=== PATIENT | male | born 1990 | race Caucasian/White ===

== ENCOUNTER 2022-04-14 11:10 | Emergency (ER) | payer SELFPAY ==
[~2022-04-14] VITALS: Ht 177.8 cm; Wt 78.0 kg
[2022-04-14 13:05] LABS: BASOPHILS # (AUTO) 0.1 10^3/uL (0.0-0.1); BASOPHILS % (AUTO) 1 % (0-10); EOSINOPHILS # (AUTO) 0.2 10^3/uL (0.0-0.3); EOSINOPHILS % (AUTO) 2 % (0-10); HEMATOCRIT 39 % (40-54); HEMOGLOBIN 13.3 g/dL (13.3-17.7); LYMPHOCYTES # (AUTO) 2.1 10^3/uL (1.0-4.0); LYMPHOCYTES % (AUTO) 24 % (12-44); MEAN CORPUSCULAR HEMOGLOBIN 31 pg (25-34); MEAN CORPUSCULAR HGB CONC 35 g/dL (32-36); MEAN CORPUSCULAR VOLUME 89 fL (80-99); MEAN PLATELET VOLUME 9.7 fL (9.0-12.2); MONOCYTES # (AUTO) 0.7 10^3/uL (0.0-1.0); MONOCYTES % (AUTO) 8 % (0-12); NEUTROPHILS # (AUTO) 5.5 10^3/uL (1.8-7.8); NEUTROPHILS % (AUTO) 64 % (42-75); PLATELET COUNT 278 10^3/uL (130-400); WHITE BLOOD COUNT 8.5 10^3/uL (4.3-11.0)
[2022-04-14 13:07] LABS: BILIRUBIN,URINE NEGATIVE (NEGATIVE); CLARITY,URINE CLEAR; COLOR,URINE YELLOW; GLUCOSE, URINE (UA) NEGATIVE (NEGATIVE); KETONES,URINE NEGATIVE (NEGATIVE); LEUKOCYTE ESTERASE ,URINE NEGATIVE (NEGATIVE); NITRITE,URINE NEGATIVE (NEGATIVE); PROTEIN,URINE NEGATIVE (NEGATIVE)
[2022-04-14 13:13] LABS: BACTERIA,URINE FEW /HPF; RBC,URINE 0-2 /HPF
[2022-04-14 13:14] LABS: AMORPHOUS SEDIMENT,UR FEW AMOR URATES /LPF; CALCIUM OXALATE CRYSTALS,UR RARE /LPF
[2022-04-14 13:16] LABS: ALBUMIN 4.9 GM/DL (3.2-4.5); CHLORIDE 103 MMOL/L (98-107); POTASSIUM 3.3 MMOL/L (3.6-5.0); SODIUM 139 MMOL/L (135-145)
[2022-04-14 13:18] LABS: CALCIUM 9.8 MG/DL (8.5-10.1)
[2022-04-14 13:19] LABS: AMPHETAMINE SCREEN, URINE NEGATIVE (NEGATIVE); BENZODIAZEPINES SCREEN URINE NEGATIVE (NEGATIVE); COCAINE SCREEN URINE POSITIVE (NEGATIVE); GLUCOSE 122 MG/DL (70-105); TOTAL PROTEIN 7.9 GM/DL (6.4-8.2)
[2022-04-14 13:20] LABS: BARBITURATE SCREEN URINE NEGATIVE (NEGATIVE); CANNABINOID SCREEN, URINE POSITIVE (NEGATIVE); CARBON DIOXIDE 25 MMOL/L (21-32); METHADONE STAT NEGATIVE (NEGATIVE); OPIATE SCREEN URINE NEGATIVE (NEGATIVE); OXYCODONE STAT NEGATIVE (NEGATIVE); PROPOXYPHENE STAT NEGATIVE (NEGATIVE); TRICYCLIC ANTIDEPRESSANTS SCRE NEGATIVE (NEGATIVE)
[2022-04-14 13:21] LABS: BILIRUBIN,TOTAL 0.8 MG/DL (0.1-1.0)
[2022-04-14 13:23] LABS: ALKALINE PHOSPHATASE 64 U/L (40-136); CREATININE SERUM 1.07 MG/DL (0.60-1.30); GFR ESTIMATED 96
[2022-04-14 13:24] LABS: BUN/CREATININE RATIO 12
[2022-04-14 13:25] LABS: SALICYLATE < 5.0 MG/DL (5.0-20.0)
[2022-04-14 13:26] LABS: ALANINE AMINOTRANSFERASE 19 U/L (0-55); CREATINE KINASE 278 U/L (30-200)
[2022-04-14 13:41] LABS: ACETAMINOPHEN < 10 UG/ML (10-30)
[2022-04-14] MEDS ORDERED: KCL 10 MEQ TAB (MICRO K) PO ONE (14:15)
[2022-04-14] MEDS: LACTATED RINGERS 1,000 ML IV ONE ×2 (14:17→14:20)
--- NOTE | 2022-04-14 14:42 | ED Psychosocial ---
General Chief Complaint: Psych/Social Disorder Stated Complaint: WANTS DETOX Nursing Triage Note: PT AMBULATE TO [facility] WITH C/O TAKING METH/FENTANYL X4 DAYS AND NOT FEELS SHAKY. PT'S SISTER WORKS FOR [employer] AND HAS SPOKEN WITH [facility] AND WAS TOLD TO COME TO ED FOR PSYCH EVAL. PT HAD ATTEMPTED TO CONTACT [facility] AND DID NOT GET WHAT THEY WANT. PT DENIES SUICIDAL AN HOMICIDAL THOUGHTS. Source: patient Exam Limitations: no limitations History of Present Illness Date Seen by Provider: Apr 14, 2022 Time Seen by Provider: 12:48 Initial Comments This 31-year-old young man presents to the emergency room accompanied by his sister with concerns about behavioral health changes related to recent substance abuse. Patient has spent much of the past few months incarcerated. He was released from alf about 1 week ago. He was "picked up again" yesterday for about 6 hours. He has been using illicit substances after release from alf. He believes he used methamphetamine and possibly fentanyl, but he is uncertain. He has lapses of time related to his substance abuse. Sister also states he has had notable delusions and possible hallucinations. Patient describes his experience as "terrors and bad dreams." Patient had been drinking daily until his incarcerations but has not had opportunity to drink much alcohol since he has been incarcerated. He reports his last substance abuse was about 24 hours ago. He apparently was told the substance he used was cocaine but he thinks it was methamphetamine and possibly fentanyl. Patient and family are seeking "detox" and a "psychiatric evaluation." He is presently alert and oriented. He denies present hallucinations or delusions. He does not appear to be acutely psychotic. He denies any suicidal or homicidal ideation. He reports no physical complaints. He is anxious but does not appear to be withdrawing. Allergies and Home Medications Allergies Coded Allergies: No Known Drug Allergies (Unverified , 04/14/22) Patient Home Medication List Home Medication List Reviewed: Yes Hydroxyzine HCl (Hydroxyzine HCl) 25 Mg Tablet, 25 MG PO Q6H PRN for ANXIETY Prescribed by: LA LAWRENCE on 04/14/22 3714 Review of Systems Constitutional: no symptoms reported EENTM: no symptoms reported Respiratory: no symptoms reported Cardiovascular: no symptoms reported Gastrointestinal: no symptoms reported Genitourinary: no symptoms reported Musculoskeletal: no symptoms reported Skin: no symptoms reported Psychiatric/Neurological: See HPI Past [id number]-Qeyoyp Hx Patient Social History Tobacco Use?: Yes Tobacco type used: Cigarettes Smoking Status: Heavy Tobacco Smoker Smokeless Tobacco Frequency: Never a User Use of E-Cig and/or Vaping dev: No Substance use?: Yes Substance type: Methamphetamine, Other (Cocaine) Additional substance use comme: FENTANYL, COCAINE Substance frequency: Daily Alcohol Use?: Yes Alcohol Frequency: Daily Pt feels they are or have been: No Past Medical History Surgeries: Yes Appendectomy Respiratory: No Cardiac: No Neurological: No Genitourinary: No Gastrointestinal: No Musculoskeletal: No Endocrine: No HEENT: No Cancer: No Psychosocial: Yes Anxiety, Depression Integumentary: No Physical Exam Vital Signs - First Documented 04/14/22 04/14/22 11:40 14:54 Temp 36.8 Pulse 101 Resp 19 B/P (MAP) 155/66 (95) Pulse Ox 96 O2 Delivery Room Air Capillary Refill : Less Than 3 Seconds Height, Weight, BMI Height: '" Weight: lbs. oz. kg; 24.00 BMI Method: General Appearance: WD/WN, other (Anxious) HEENT: PERRL/EOMI, normal ENT inspection Neck: normal inspection Respiratory: lungs clear, normal breath sounds, no respiratory distress Cardiovascular: no edema, no murmur, tachycardia (Mild) Gastrointestinal: non tender, soft Extremities: normal inspection, no pedal edema Neurologic/Psychiatric: no motor/sensory deficits, alert, oriented x 3, other (Anxious, mild dystonic movements and anxious twitching) Appearance/Memory: appropriate appearance, appropriate insight Behavior/Eye Contact: cooperative, good eye contact, normal speech Thoughts/Hallucinations: no apparent hallucination Skin: normal color, warm/dry Progress/Results/Core Measures Results/Orders Lab Results Laboratory Tests Test 04/14/22 12:57 Range/Units White Blood Count 8.5 4.3-11.0 10^3/uL Red Blood Count 4.34 4.30-5.52 10^6/uL Hemoglobin 13.3 13.3-17.7 g/dL Hematocrit 39 L 40-54 % Mean Corpuscular Volume 89 80-99 fL Mean Corpuscular Hemoglobin 31 25-34 pg Mean Corpuscular Hemoglobin Concent 35 32-36 g/dL Red Cell Distribution Width 12.2 10.0-14.5 % Platelet Count 278 130-400 10^3/uL Mean Platelet Volume 9.7 9.0-12.2 fL Immature Granulocyte % (Auto) 0 % Neutrophils (%) (Auto) 64 42-75 % Lymphocytes (%) (Auto) 24 12-44 % Monocytes (%) (Auto) 8 0-12 % Eosinophils (%) (Auto) 2 0-10 % Basophils (%) (Auto) 1 0-10 % Neutrophils # (Auto) 5.5 1.8-7.8 10^3/uL Lymphocytes # (Auto) 2.1 1.0-4.0 10^3/uL Monocytes # (Auto) 0.7 0.0-1.0 10^3/uL Eosinophils # (Auto) 0.2 0.0-0.3 10^3/uL Basophils # (Auto) 0.1 0.0-0.1 10^3/uL Immature Granulocyte # (Auto) 0.0 0.0-0.1 10^3/uL Urine Color YELLOW Urine Clarity CLEAR Urine pH 6.0 5-9 Urine Specific [place] >=1.030 1.016-1.022 Urine Protein NEGATIVE NEGATIVE Urine Glucose (UA) NEGATIVE NEGATIVE Urine Ketones NEGATIVE NEGATIVE Urine Nitrite NEGATIVE NEGATIVE Urine Bilirubin NEGATIVE NEGATIVE Urine Urobilinogen 0.2 < = 1.0 MG/DL Urine Leukocyte Esterase NEGATIVE NEGATIVE Urine RBC (Auto) NEGATIVE NEGATIVE Urine RBC 0-2 /HPF Urine WBC 5-10 H /HPF Urine Crystals PRESENT H /LPF Urine Calcium Oxalate Crystals RARE H /LPF Urine Amorphous Sediment FEW NOLVIA URATES H /LPF Urine Bacteria FEW H /HPF Urine Casts NONE /LPF Urine Mucus MODERATE H /LPF Urine Culture Indicated YES Sodium Level 139 135-145 MMOL/L Potassium Level 3.3 L 3.6-5.0 MMOL/L Chloride Level 103 98-107 MMOL/L Carbon Dioxide Level 25 21-32 MMOL/L Anion Gap 11 5-14 MMOL/L Blood Urea Nitrogen 13 7-18 MG/DL Creatinine 1.07 0.60-1.30 MG/DL Estimat Glomerular Filtration Rate 96 BUN/Creatinine Ratio 12 Glucose Level 122 H 70-105 MG/DL Calcium Level 9.8 8.5-10.1 MG/DL Corrected Calcium 8.5-10.1 MG/DL Total Bilirubin 0.8 0.1-1.0 MG/DL Aspartate Amino Transf (AST/SGOT) 19 5-34 U/L Alanine Aminotransferase (ALT/SGPT) 19 0-55 U/L Alkaline Phosphatase 64 40-136 U/L Total Creatine Kinase 278 H 30-200 U/L Total Protein 7.9 6.4-8.2 GM/DL Albumin 4.9 H 3.2-4.5 GM/DL [facility] [place] Testing 1.24 0.35-4.94 UIU/ML Salicylates Level < 5.0 L 5.0-20.0 MG/DL Urine Opiates Screen NEGATIVE NEGATIVE Urine Oxycodone Screen NEGATIVE NEGATIVE Urine Methadone Screen NEGATIVE NEGATIVE Urine Propoxyphene Screen NEGATIVE NEGATIVE Acetaminophen Level < 10 L 10-30 UG/ML Urine Barbiturates Screen NEGATIVE NEGATIVE Ur Tricyclic Antidepressants Screen NEGATIVE NEGATIVE Urine Phencyclidine Screen NEGATIVE NEGATIVE Urine Amphetamines Screen NEGATIVE NEGATIVE Urine Methamphetamines Screen NEGATIVE NEGATIVE Urine Benzodiazepines Screen NEGATIVE NEGATIVE Urine Cocaine Screen POSITIVE H NEGATIVE Urine Cannabinoids Screen POSITIVE H NEGATIVE Serum Alcohol < 10 <10 MG/DL My Orders Orders - AL RODRÍGUEZ MD Ua Culture If Indicated (04/14/22 12:48) Cbc With Automated Diff (04/14/22 12:48) Comprehensive Metabolic Panel (04/14/22 12:48) Alcohol (04/14/22 12:48) Drug Screen Stat (Urine) (04/14/22 12:48) Acetaminophen (04/14/22 12:48) Salicylate (04/14/22 12:48) Thyroid Analyzer (04/14/22 12:48) Bh Status Checks/Observation O Q15M (04/14/22 12:48) Ed Iv/Invasive Line Start (04/14/22 12:49) Creatine Kinase (04/14/22 12:49) Urine Culture (04/14/22 12:57) Lactated Ringers (Lr 1000 Ml Iv Solution (04/14/22 14:15) Potassium Chloride (Tablet) (Klor Con Ta (04/14/22 14:15) Hydroxyzine Cap/Tab (Vistaril) (04/14/22 14:45) Medications Given in ED Current Medications Medications Dose Ordered Sig/Dina Route Start Time Stop Time Status Last Admin Dose Admin Hydroxyzine Pamoate 25 mg ONCE ONCE PO 04/14/22 14:45 04/14/22 14:46 DC 04/14/22 14:49 25 MG Potassium Chloride 20 meq ONCE ONCE PO 04/14/22 14:15 04/14/22 14:16 DC 04/14/22 14:17 20 MEQ Vital Signs/I&O 04/14/22 04/14/22 11:40 14:54 Temp 36.8 Pulse 101 92 Resp 19 22 B/P (MAP) 155/66 (95) 160/102 Pulse Ox 96 O2 Delivery Room Air Room Air Blood Pressure Mean: 95 Progress Progress Note : Time: 14:35 Progress Note Labs were reviewed. Patient had mild hypokalemia which was treated with oral potassium. Creatinine kinase was mildly elevated. IV fluids were ordered, but patient declined citing preference to push oral fluids. Oral hydration is an acceptable alternative for this mild elevation of CK. Patient is quite anxious at the time of discharge and would appreciate assistance with his anxiety. Hydr oxyzine was ordered to receive prior to discharge. At this time patient is alert, oriented, and aware of his situation. He is able to logically discuss a treatment plan. He is not demonstrating acute psychosis. He has denied suicidal or homicidal ideation to multiple staff members. He does not meet criteria for psychiatric screening for inpatient placement, nor does he want to seek inpatient care. Because he has been incarcerated the majority of the past couple of months, he has not had opportunity to develop dependence to drugs or alcohol that would precipitate a withdrawal syndrome. He does not appear to be acutely withdrawing from drugs or alcohol at this time. Patient is comfortable with discharge and pursuing outpatient resources. He does not desire inpatient care. Departure Impression Primary Impression: Polysubstance abuse Additional Impressions: Anxiety Hypokalemia Elevated creatine kinase Disposition: 01 HOME, SELF-CARE Condition: Stable Departure-Patient Inst. Decision time for Depature: 14:39 Referrals: NO,LOCAL PHYSICIAN (PCP/Family) Primary Care Physician Patient Instructions: ALCOHOL AND SUBSTANCE ABUSE, Drug Abuse Treatment Add. Discharge Instructions: Push lots of clear liquids to day. Use hydroxyzine as prescribed for anxiety. Promptly seek outpatient treatment for substance abuse. Some resources are attached. Some local resources that may be helpful include the [facility], the [facility] in [facility], etc. Some other support groups would include [facility] at [facility] in [place] and [facility] at [facility]Note [facility] in [place]. Return to care if you have worsening symptoms. Refrain from the use of any illicit mind altering substances including marijuana, cocaine, methamphetamine, alcohol, etc. All discharge instructions reviewed with patient and/or family. Voiced understanding. Scripts Hydroxyzine HCl (Hydroxyzine HCl) 25 Mg Tablet 25 MG PO Q6H PRN for ANXIETY, #10 TAB Prov: LA RODRÍGUEZ MD 04/14/22 LA RODÍRGUEZ MD Apr 14, 2022 14:42
[2022-04-14] MEDS ORDERED: HYDR-700 PO (14:43)
[2022-04-14] MEDS ORDERED: hydrOXYzine (VISTARIL/ATARAX) 25 MG capsule/tablet PO ONE (14:45)
[2022-04-14 14:54] VITALS: BP 160/102
== END 2022-04-14 14:54 | disposition home or self-care (01) ==
LOC: EDUNIT# 11:10 → ER 11:15
DX: F19.10 Other psychoactive substance abuse, uncomplicated (principal); F41.9 Anxiety disorder, unspecified; E87.6 Hypokalemia; R79.89 Other specified abnormal findings of blood chemistry; F17.210 Nicotine dependence, cigarettes, uncomplicated; Z28.310 Unvaccinated for COVID-19
CPT/HCPCS: 80053; 80306; 81000; 82550; 84443; 85025; 87088; 99283; G0480 ×3; 36415; 80320; 80329